=== PATIENT | male | born 1985 | race Caucasian/White ===

== ENCOUNTER 2017-12-21 21:05 | Emergency (ER) | payer OTHER ==
[~2017-12-21] VITALS: Ht 177.8 cm; Wt 102.1 kg
[2017-12-21 21:13] VITALS: BP 158/101
[2017-12-21] MEDS ORDERED: NORCO 5-325 TA1 EAC1 PO (21:18)
[2017-12-21] MEDS ORDERED: PENICILLIN VK500 MG PO (21:18)
== END 2017-12-21 21:30 | disposition home or self-care (01) ==
LOC: M.ERS 21:05
DX: M27.63 Post-osseointegration mechanical failure of dental implant (principal); F17.210 Nicotine dependence, cigarettes, uncomplicated

== ENCOUNTER 2018-07-06 20:20 | Observation (INO) | payer OTHER ==
[~2018-07-06] VITALS: Ht 177.8 cm; Wt 99.8 kg
[~2018-07-06 20:20] MED LIST: NORCO 5-325 TA1 EAC1 PO; PENICILLIN VK500 MG PO
[2018-07-06 20:25] VITALS: BP 182/100
[2018-07-06 20:39] LABS: URINE BLOOD 3+ (Negative); URINE CLARITY CLEAR; URINE COLOR ORANGE; URINE GLUCOSE-RANDOM 1+ (Negative); URINE KETONES TRACE (Negative); URINE LEUKOCYTES-REFLEX NEGATIVE (Negative); URINE PROTEIN 2+ (Negative); URINE SPECIFIC GRAVITY >= 1.030 (1.005-1.030); URINE UROBILINOGEN >= 8.0 E.U./dl (0.2-1.0)
[2018-07-06 20:41] LABS: ICTOTEST (BILI CONFIRMATORY) Positive (Negative); URINE BILIRUBIN 1+ (Negative); URINE NITRITE-REFLEX POSITIVE (Negative)
[2018-07-06 20:46] LABS: SQUAMOUS NONE SEEN /LPF (0-3); URINE RBC >20 Many /HPF (0-2); URINE WBC-REFLEX None Seen /HPF (0-5)
[2018-07-06 20:47] LABS: BACTERIA-REFLEX 1-9 Few /HPF (None Seen); CASTS None Seen /LPF (None Seen); CRYSTALS None Seen /LPF (None Seen)
[2018-07-06 21:00] LABS: ABSOLUTE EOSINOPHILS 0.2 thou/uL (0.0-0.7); ABSOLUTE LYMPHOCYTES 4.7 thou/uL (0.8-5.3); ABSOLUTE NEUTROPHILS 8.7 thou/uL (1.6-8.1); BASOPHILS 0.3 %; EOSINOPHILS 1.6 %; HEMATOCRIT 47.7 % (42.0-52.0); HEMOGLOBIN 16.1 gm/dL (14.0-18.0); LYMPHOCYTES 32.3 %; MCH 30.3 pg (26.0-34.0); MCHC 33.7 g/dL (28.0-37.0); MONOCYTES 6.5 %; MPV 8.3 fl. (7.2-11.1); NUCLEATED RBCS 0 /100WBC; PLATELET COUNT* 306 thou/uL (150-400); POLYS 59.3 %; RDW-CV 13.6 % (10.5-14.5); WBC 14.7 thou/uL (4.0-11.0)
[2018-07-06 21:01] LABS: POTASSIUM 3.5 mmol/L (3.5-5.1)
[2018-07-06 21:06] LABS: ALBUMIN 4.1 g/dL (3.4-5.0); TOTAL BILIRUBIN 0.2 mg/dL (<0.1-1.0); TOTAL PROTEIN 7.3 g/dL (6.4-8.2)
[2018-07-06 22:44] LABS: AMP/METHAMP Negative (Negative); BARBITURATES Negative (Negative); BENZODIAZEPINES Negative (Negative); COCAINE Negative (Negative); METHADONE Negative (Negative); OPIATES Negative (Negative); PCP Negative (Negative); THC Negative (Negative)
[2018-07-06 23:27] VITALS: BP 134/71
[2018-07-07 00:10] VITALS: BP 131/77
[2018-07-07 03:45] LABS: ABSOLUTE BASOPHILS 0.1 thou/uL (0.0-0.2); ABSOLUTE EOSINOPHILS 0.2 thou/uL (0.0-0.7); ABSOLUTE LYMPHOCYTES 3.2 thou/uL (0.8-5.3); ABSOLUTE MONOCYTES 1.2 thou/uL (0.0-1.2); ABSOLUTE NEUTROPHILS 7.2 thou/uL (1.6-8.1); BASOPHILS 0.6 %; EOSINOPHILS 1.8 %; HEMATOCRIT 43.9 % (42.0-52.0); HEMOGLOBIN 14.3 gm/dL (14.0-18.0); LYMPHOCYTES 27.2 %; MCH 29.7 pg (26.0-34.0); MCHC 32.6 g/dL (28.0-37.0); MONOCYTES 9.7 %; MPV 8.6 fl. (7.2-11.1); NUCLEATED RBCS 0 /100WBC; PLATELET COUNT* 259 thou/uL (150-400); POLYS 60.7 %; RBC 4.83 mil/uL (4.50-6.00); RDW-CV 13.8 % (10.5-14.5); WBC 11.9 thou/uL (4.0-11.0)
[2018-07-07 04:11] LABS: ALBUMIN 3.4 g/dL (3.4-5.0); CALCIUM 8.2 mg/dL (8.5-10.1); CREATININE 1.1 mg/dL (0.6-1.3); TOTAL BILIRUBIN 0.4 mg/dL (<0.1-1.0); TOTAL PROTEIN 5.9 g/dL (6.4-8.2)
[2018-07-07 07:43] VITALS: BP 123/77
[2018-07-07] MEDS ORDERED: ZOFRAN ODT4 MG DISSOLVE (08:48)
[2018-07-07] MEDS ORDERED: CIPRO500 MG PO (08:48)
[2018-07-07] MEDS ORDERED: NORCO 5-325 TA1 EAC1 PO (08:48)
[2018-07-07] MEDS ORDERED: TRAMADOL 50 MG50 MG PO (08:48)
[2018-07-07] MEDS ORDERED: FLOMAX0.4 MG PO (08:48)
[2018-07-07 10:49] VITALS: BP 123/77
== END 2018-07-07 13:55 | disposition still patient (30) ==
LOC: M.ERS 20:20 → M.ORTHSURG 21:48 → M.TBA-ER 21:48 → M.ORTHSURG 21:48
PROVIDERS: Nurse Practitioner Family; ADMIT Family Medicine
DX: N13.2 Hydronephrosis with renal and ureteral calculous obstruction (principal); N30.01 Acute cystitis with hematuria; I44.0 Atrioventricular block, first degree; M54.5 Low back pain; R82.90 Unspecified abnormal findings in urine; K21.9 Gastro-esophageal reflux disease without esophagitis; R30.0 Dysuria; D72.829 Elevated white blood cell count, unspecified; F17.210 Nicotine dependence, cigarettes, uncomplicated; Z95.0 Presence of cardiac pacemaker; Z72.89 Other problems related to lifestyle; Z79.899 Other long term (current) drug therapy

== ENCOUNTER 2018-07-13 18:49 | Emergency (ER) | payer OTHER ==
[~2018-07-13] VITALS: Ht 177.8 cm; Wt 115.2 kg
[~2018-07-13 18:49] MED LIST changes: +CIPRO500 MG PO; +FLOMAX0.4 MG PO; +TRAMADOL 50 MG50 MG PO; +ZOFRAN ODT4 MG DISSOLVE
[2018-07-13 19:36] LABS: ABSOLUTE BASOPHILS 0.1 thou/uL (0.0-0.2); ABSOLUTE EOSINOPHILS 0.3 thou/uL (0.0-0.7); ABSOLUTE MONOCYTES 0.7 thou/uL (0.0-1.2); ABSOLUTE NEUTROPHILS 4.7 thou/uL (1.6-8.1); BASOPHILS 1.3 %; EOSINOPHILS 3.3 %; HEMATOCRIT 46.8 % (42.0-52.0); HEMOGLOBIN 16.2 gm/dL (14.0-18.0); LYMPHOCYTES 34.1 %; MCH 31.1 pg (26.0-34.0); MCHC 34.7 g/dL (28.0-37.0); MCV 89.7 fL (80.0-100.0); MPV 8.3 fl. (7.2-11.1); NUCLEATED RBCS 0 /100WBC; PLATELET COUNT* 316 thou/uL (150-400); POLYS 53.3 %; RBC 5.22 mil/uL (4.50-6.00); RDW-CV 13.8 % (10.5-14.5); WBC 8.8 thou/uL (4.0-11.0)
[2018-07-13 19:42] LABS: CALCIUM 8.6 mg/dL (8.5-10.1); CREATININE 0.8 mg/dL (0.6-1.3); POTASSIUM 3.9 mmol/L (3.5-5.1)
[2018-07-13 19:46] LABS: ALBUMIN 3.7 g/dL (3.4-5.0); TOTAL BILIRUBIN 0.3 mg/dL (<0.1-1.0)
[2018-07-13 20:36] LABS: URINE BILIRUBIN NEGATIVE (Negative); URINE BLOOD NEGATIVE (Negative); URINE CLARITY CLEAR; URINE COLOR YELLOW; URINE GLUCOSE-RANDOM NEGATIVE (Negative); URINE KETONES NEGATIVE (Negative); URINE LEUKOCYTES-REFLEX NEGATIVE (Negative); URINE NITRITE-REFLEX NEGATIVE (Negative); URINE PROTEIN NEGATIVE (Negative); URINE UROBILINOGEN 0.2 E.U./dl (0.2-1.0)
[2018-07-13 20:47] LABS: AMP/METHAMP Negative (Negative); BARBITURATES Negative (Negative); BENZODIAZEPINES Negative (Negative); COCAINE Negative (Negative); METHADONE Negative (Negative); OPIATES POSITIVE (Negative); PCP Negative (Negative); THC Negative (Negative)
[2018-07-13] MEDS ORDERED: NORCO 5-325 TA1 EAC1 PO (21:04)
[2018-07-13] MEDS ORDERED: ZOFRAN ODT4 MG PO (21:04)
[2018-07-13 21:26] VITALS: BP 124/80
== END 2018-07-13 21:26 | disposition home or self-care (01) ==
LOC: M.ERS 18:49
PROVIDERS: Nurse Practitioner Family
DX: N20.0 Calculus of kidney (principal); R11.2 Nausea with vomiting, unspecified; F17.210 Nicotine dependence, cigarettes, uncomplicated; Z79.899 Other long term (current) drug therapy

== ENCOUNTER 2019-03-10 01:06 | Emergency (ER) | payer OTHER ==
[~2019-03-10] VITALS: Ht 177.8 cm; Wt 97.5 kg
[~2019-03-10 01:06] MED LIST changes: +ZOFRAN ODT4 MG PO
[2019-03-10] MEDS ORDERED: CYMBALTA60 MG PO (01:14)
[2019-03-10] MEDS ORDERED: PENICILLIN VK500 M1 PO (01:21)
[2019-03-10] MEDS ORDERED: NORCO 5-325 TA1 EAC1 PO (01:21)
[2019-03-10 01:35] VITALS: BP 173/108
== END 2019-03-10 01:30 | disposition home or self-care (01) ==
LOC: M.ERS 01:06
DX: K02.9 Dental caries, unspecified (principal)

== ENCOUNTER 2019-09-07 01:15 | Emergency (ER) | payer OTHER ==
[~2019-09-07] VITALS: Ht 175.3 cm; Wt 95.3 kg
[~2019-09-07 01:15] MED LIST changes: +CYMBALTA60 MG PO; +PENICILLIN VK500 M1 PO
[2019-09-07 01:26] VITALS: BP 145/81
[2019-09-07] MEDS ORDERED: CILOXAN5 ML EA. EYE (02:05)
[2019-09-07] MEDS ORDERED: HYDROCODON-ACE1 EAC7 PO (02:05)
== END 2019-09-07 02:16 | disposition home or self-care (01) ==
LOC: M.ERS 01:15
DX: H16.133 Photokeratitis, bilateral (principal); Z95.0 Presence of cardiac pacemaker